=== PATIENT | male | born 1955 | race Caucasian/White ===

== ENCOUNTER 2018-11-24 14:09 | Inpatient (IN) | payer MEDICARE, OTHER ==
[2018-11-24] MEDS ORDERED: ACETAMINOPHEN 325 MG TAB PO (18:30)
[2018-11-24] MEDS ORDERED: DOCUSATE SODIUM 100 MG CAP PO (18:30)
[2018-11-24] MEDS ORDERED: MAGNESIUM HYDROXIDE 30ML CUP PO (18:30)
[2018-11-24] MEDS ORDERED: NACL 0.9% 3 ML SYG IV (18:30)
[2018-11-24] MEDS ORDERED: ONDANSETRON 4 MG INJ IV (18:30)
[2018-11-24 20:09] LABS: ADD MAN DIFF? NO
[2018-11-24 20:21] LABS: WHITE BLOOD COUNT 17.8 10^3/ul (4.8-10.8)
[2018-11-24 20:21] LABS: BASOPHILS % 0.2 % (0.0-2.0); HEMATOCRIT 46.4 % (42.0-52.0); HEMOGLOBIN 14.8 g/dl (14.0-18.0); LYMPHOCYTES # 0.6 10^3/ul (0.8-2.9); LYMPHOCYTES % 3.5 % (15.0-51.0); MEAN CORPUSCULAR HEMOGLOBIN 30.9 pg (29.0-33.0); MEAN CORPUSCULAR HGB CONC 31.9 g/dl (32.0-37.0); MEAN CORPUSCULAR VOLUME 96.9 fl (82.0-101.0); MEAN PLATELET VOLUME 10.7 fl (7.4-10.4); MONOCYTE # 0.1 10^3/ul (0.3-0.9); MONOCYTES % 0.6 % (0.0-11.0); NEUTROPHIL # 16.9 10^3/ul (1.6-7.5); NEUTROPHILS % 94.9 % (39.0-77.0); PLATELET COUNT 260 10^3/UL (140-415); RED BLOOD COUNT 4.79 10^6/ul (4.70-6.10); RED CELL DISTRIBUTION WIDTH 12.3 % (11.5-14.5)
[2018-11-24 20:36] LABS: ALANINE AMINOTRANSFERASE 30 IU/L (13-69); ALBUMIN 4.3 g/dl (3.3-4.9); ALBUMIN/GLOBULIN RATIO 1.59; ALKALINE PHOSPHATASE 105 IU/L (42-121); ANION GAP 10 (5-13); ASPARTATE AMINO TRANSFERASE 23 IU/L (15-46); BILIRUBIN,INDIRECT 0.2 mg/dl (0-1.1); BILIRUBIN,TOTAL 0.2 mg/dl (0.2-1.3); BLOOD UREA NITROGEN 15 mg/dl (7-20); CALCIUM 10.3 mg/dl (8.4-10.2); CARBON DIOXIDE 28 mmol/L (21-31); CHLORIDE 100 mmol/L (97-110); CREATININE 0.75 mg/dl (0.61-1.24); Estimated GFR > 60 mL/min (>60); GLUCOSE 366 mg/dl (70-220); INR 0.84; MAGNESIUM 2.1 mg/dl (1.7-2.5); PHOSPHORUS 3.7 mg/dl (2.5-4.9); POTASSIUM 4.8 mmol/L (3.5-5.1); PROTIME 11.6 Sec (11.9-14.9); PT RATIO 0.9; SODIUM 138 mmol/L (135-144)
[2018-11-24 20:37] LABS: PARTIAL THROMBOPLASTIN TIME 25.5 Sec (23.0-35.0)
[2018-11-24] MEDS: HYDROCODONE/APAP (5/325) TAB PO (20:46)
[2018-11-24] MEDS ORDERED: VANCOMYCIN IV PER PHARMACY XX (21:00)
[2018-11-24] MEDS ORDERED: GLUCOSE GEL 15 GRAM TUBE PO ×2 (21:00)
[2018-11-24] MEDS ORDERED: GLUCAGON 1 MG INJ IM (21:00)
[2018-11-24] MEDS ORDERED: GLUCOSE GEL 15 GRAM TUBE BUCCAL (21:00)
[2018-11-24] MEDS ORDERED: DEXTROSE 50% 50 ML SYRINGE IV ×2 (21:00)
[2018-11-24] MEDS: GABAPENTIN 300 MG CAP PO (21:38)
[2018-11-24] MEDS: ATORVASTATIN 80 MG TAB PO (21:38)
[2018-11-24] MEDS: TAMSULOSIN (SR) 0.4 MG CAP PO (21:40)
[2018-11-24 21:47] LABS: PROCALCITONIN 0.21 ng/mL (0.00-0.10)
[2018-11-24] MEDS: CEFTRIAXONE 1 GM/50 ML (PMX) 50 ML IVPB (22:50)
[2018-11-24] MEDS: INSULIN ASPART [NOVOLOG] 3 ML PEN SC (23:05)
[2018-11-24] MEDS: VANCOMYCIN HCL 2 GM in SOD CHLORIDE 0.9% 500 ML IVPB (23:21)
[2018-11-24] MEDS: ZOLPIDEM 5 MG TAB PO (23:23)
[2018-11-24 23:50] LABS: ADD UMIC NO; UR ASCORBIC ACID NEGATIVE (NEGATIVE); UR BILIRUBIN (Dip) NEGATIVE (NEGATIVE); UR BLOOD (Dip) NEGATIVE (NEGATIVE); UR CLARITY CLEAR (CLEAR); UR COLOR YELLOW (YELLOW); UR GLUCOSE (Dip) 3+ mg/dL (NEGATIVE); UR KETONES (Dip) NEGATIVE (NEGATIVE); UR LEUKOCYTE ESTERASE (Dip) NEGATIVE Leu/ul (NEGATIVE); UR NITRITE (Dip) NEGATIVE (NEGATIVE); UR TOTAL PROTEIN (Dip) NEGATIVE (NEGATIVE); UR UROBILINOGEN (Dip) NEGATIVE (NEGATIVE)
[2018-11-25] MEDS: metFORMIN 500 MG TAB PO ×4 (08:30→18:00)
[2018-11-25 08:34] LABS: HEMOGLOBIN A1C 7.6 % (0-5.9)
[2018-11-25] MEDS: ESCITALOPRAM 10 MG TAB PO (08:47)
[2018-11-25] MEDS: LINAGLIPTIN 5 MG TABLET PO (08:48)
[2018-11-25] MEDS: INSULIN ASPART [NOVOLOG] 3 ML PEN SC ×4 (08:53→21:00)
[2018-11-25] MEDS: HYDROCODONE/APAP (5/325) TAB PO ×4 (09:01→20:01)
[2018-11-25] MEDS: VANCOMYCIN 1.5 GM/NS 250 ML 250 ML IVPB (11:06)
[2018-11-25] MEDS: GABAPENTIN 300 MG CAP PO (22:41)
[2018-11-25] MEDS: ATORVASTATIN 80 MG TAB PO (22:41)
[2018-11-25] MEDS: TAMSULOSIN (SR) 0.4 MG CAP PO (22:41)
[2018-11-25] MEDS: SUMATRIPTAN 50 MG TAB PO (22:41)
[2018-11-26] MEDS: HYDROCODONE/APAP (5/325) TAB PO ×3 (00:25→14:04)
[2018-11-26] MEDS: VANCOMYCIN 1.5 GM/NS 250 ML 250 ML IVPB ×2 (00:26→12:41)
[2018-11-26] MEDS: AMLODIPINE 2.5 MG TAB PO ×2 (02:53→15:33)
[2018-11-26 05:37] LABS: ADD MAN DIFF? NO
[2018-11-26 05:45] LABS: BASOPHILS % 0.1 % (0.0-2.0); EOSINOPHILS % 0.2 % (0.0-7.0); HEMATOCRIT 41.6 % (42.0-52.0); HEMOGLOBIN 13.5 g/dl (14.0-18.0); LYMPHOCYTES # 1.6 10^3/ul (0.8-2.9); LYMPHOCYTES % 10.8 % (15.0-51.0); MEAN CORPUSCULAR HEMOGLOBIN 31.2 pg (29.0-33.0); MEAN CORPUSCULAR HGB CONC 32.5 g/dl (32.0-37.0); MEAN CORPUSCULAR VOLUME 96.1 fl (82.0-101.0); MONOCYTE # 0.9 10^3/ul (0.3-0.9); MONOCYTES % 6.2 % (0.0-11.0); NEUTROPHIL # 11.8 10^3/ul (1.6-7.5); NEUTROPHILS % 81.4 % (39.0-77.0); PLATELET COUNT 226 10^3/UL (140-415); RED BLOOD COUNT 4.33 10^6/ul (4.70-6.10); RED CELL DISTRIBUTION WIDTH 12.3 % (11.5-14.5)
[2018-11-26 05:45] LABS: WHITE BLOOD COUNT 14.5 10^3/ul (4.8-10.8)
[2018-11-26 06:02] LABS: ALANINE AMINOTRANSFERASE 23 IU/L (13-69); ALBUMIN 3.6 g/dl (3.3-4.9); ALKALINE PHOSPHATASE 67 IU/L (42-121); ANION GAP 6 (5-13); ASPARTATE AMINO TRANSFERASE 19 IU/L (15-46); BILIRUBIN,INDIRECT 0.4 mg/dl (0-1.1); BILIRUBIN,TOTAL 0.4 mg/dl (0.2-1.3); BLOOD UREA NITROGEN 18 mg/dl (7-20); CALCIUM 9.5 mg/dl (8.4-10.2); CARBON DIOXIDE 26 mmol/L (21-31); CHLORIDE 108 mmol/L (97-110); CREATININE 0.62 mg/dl (0.61-1.24); Estimated GFR > 60 mL/min (>60); GLUCOSE 237 mg/dl (70-220); POTASSIUM 3.7 mmol/L (3.5-5.1); SODIUM 140 mmol/L (135-144); URIC ACID 4.9 mg/dl (3.1-7.9)
[2018-11-26 07:31] LABS: PROCALCITONIN 0.05 ng/mL (0.00-0.10)
[2018-11-26] MEDS: ESCITALOPRAM 10 MG TAB PO (08:37)
[2018-11-26] MEDS: LINAGLIPTIN 5 MG TABLET PO (08:38)
[2018-11-26] MEDS: metFORMIN 500 MG TAB PO (08:38)
[2018-11-26] MEDS: INSULIN ASPART [NOVOLOG] 3 ML PEN SC ×2 (08:44→12:00)
[2018-11-26] MEDS ORDERED: ZOLPIDEM 5 MG TAB PO (13:30)
[2018-11-26] MEDS: AMOXICILLIN/CLAV 875 MG TAB PO (15:33)
[2018-11-26] MEDS: DOXYCYCLINE 100 MG TAB PO (15:33)
[2018-11-26] MEDS ORDERED: metFORMIN 500 MG TAB PO (18:00)
[2018-11-26] MEDS ORDERED: oxyCODONE (CR) 10 MG TAB [oxyCONTIN] PO (21:00)
[2018-11-26] MEDS ORDERED: ATORVASTATIN 80 MG TAB PO (21:00)
[2018-11-27] MEDS ORDERED: CLOPIDOGREL 75 MG TAB PO (09:00)
[2018-11-27] MEDS ORDERED: LISINOPRIL 5 MG TAB PO (09:00)
[2018-11-27] MEDS ORDERED: ASPIRIN 81 MG TAB PO (09:00)
[2018-11-27] MEDS ORDERED: ESCITALOPRAM OXALATE 20 MG PO (09:00)
== END 2018-11-26 17:30 | disposition home or self-care (01) | DRG 603 ==
LOC: E/R 14:09 → 2NE 17:15
DX: L03.116 Cellulitis of left lower limb (principal); F11.20 Opioid dependence, uncomplicated; C90.01 Multiple myeloma in remission; L03.115 Cellulitis of right lower limb; E11.9 Type 2 diabetes mellitus without complications; I25.9 Chronic ischemic heart disease, unspecified; G43.909 Migraine, unspecified, not intractable, without status migrainosus; I25.10 Atherosclerotic heart disease of native coronary artery without angina pectoris; Z95.5 Presence of coronary angioplasty implant and graft; G89.4 Chronic pain syndrome
CPT/HCPCS: 71045; 80053; 80202; 81003; 82962; 83036; 83735; 84100; 84145; 84560; 85025; 85610; 85730; 87040-91; 87070; 87086; 93005; 99217